=== PATIENT | male | born 1940 | race Caucasian/White ===

== ENCOUNTER 2017-12-12 10:51 | Inpatient (IN) | payer OTHER ==
[~2017-12-12] VITALS: Ht 175.3 cm; Wt 67.9 kg
[~2017-12-12 10:51] MED LIST: ASPIRIN BUFFER325 MG PO; LEVEMIR; LOPRESSOR; LOTREL 5-10 MG1 EACH PO; METFORMIN 500500 MG PO; NOVOLOG100 UNIT/1 SQ; PRILOSEC 20 MG20 MG PO; TOPROL XL25 MG PO
[2017-12-12 11:02] VITALS: BP 156/74
[2017-12-12] MEDS ORDERED: TOUJEO MAX300 UNIT/1 PO (11:10)
[2017-12-12] MEDS ORDERED: VITAMIN B-12500 MCG PO (11:12)
[2017-12-12] MEDS ORDERED: ZOCOR20 MG PO (11:12)
[2017-12-12] MEDS ORDERED: VITAMIN D5000 UNIT PO (11:12)
[2017-12-12] MEDS ORDERED: NUVIGIL150 MG PO (11:13)
[2017-12-12] MEDS ORDERED: FISH OIL 1,001000 M2 PO (11:13)
[2017-12-12] MEDS ORDERED: SILDENAFIL20 MG PO (11:13)
[2017-12-12] MEDS ORDERED: BENAZEPRIL HCL20 MG PO (11:14)
[2017-12-12] MEDS ORDERED: PROTONIX 20 MG20 M1 PO (11:15)
[2017-12-12] MEDS ORDERED: NEURONTIN 400400 M1 PO (11:16)
[2017-12-12] MEDS ORDERED: PREDNISOLONE ACE5 ML INTRAOCULR (11:36)
[2017-12-12 11:37] LABS: ABSOLUTE BASOPHILS 0.1 thou/uL (0.0-0.2); ABSOLUTE LYMPHOCYTES 1.2 thou/uL (0.8-5.3); ABSOLUTE MONOCYTES 0.5 thou/uL (0.0-1.2); ABSOLUTE NEUTROPHILS 7.6 thou/uL (1.6-8.1); BASOPHILS 0.5 %; EOSINOPHILS 0.4 %; HEMATOCRIT 43.3 % (42.0-52.0); HEMOGLOBIN 14.4 gm/dL (14.0-18.0); LYMPHOCYTES 12.5 %; MCH 30.1 pg (26.0-34.0); MCHC 33.4 g/dL (28.0-37.0); MCV 90.1 fL (80.0-100.0); MONOCYTES 5.3 %; NUCLEATED RBCS 0 /100WBC; PLATELET COUNT* 219 thou/uL (150-400); POLYS 81.3 %; RDW-CV 15.2 % (10.5-14.5); WBC 9.4 thou/uL (4.0-11.0)
[2017-12-12] MEDS ORDERED: ACULAR 0.5% EYE5 ML INTRAOCULR (11:38)
[2017-12-12] MEDS ORDERED: MOXEZA3 ML INTRAOCULR (11:38)
--- NOTE | 2017-12-12 11:48 | NUR ---
NELL NOTIFIED UPON PT RETURN FROM CT. PT CONNECTED TO MONITOR
[2017-12-12 11:52] LABS: ANION GAP 6 mmol/L (7-16); BUN 23 mg/dL (7-18); CALCIUM 8.5 mg/dL (8.5-10.1); CHLORIDE 106 mmol/L (98-107); CO2 28 mmol/L (21-32); CREATININE 1.2 mg/dL (0.6-1.3); GLUCOSE 158 mg/dL (70-99); SODIUM 140 mmol/L (136-145)
[2017-12-12 11:59] LABS: ALBUMIN 3.4 g/dL (3.4-5.0); ALKALINE PHOSPHATASE 127 U/L (46-116); SGOT 18 U/L (15-37); SGPT 19 U/L (30-65); TOTAL BILIRUBIN 0.8 mg/dL (<0.1-1.0); TOTAL PROTEIN 7.1 g/dL (6.4-8.2); TROPONIN-I LEVEL <0.06 ng/mL (<0.06)
[2017-12-12 13:49] LABS: CHOLESTEROL 150 mg/dL (<200); HDL CHOLESTEROL 58 mg/dL (>40); LDL CHOLESTEROL 78 mg/dL (<100); TC:HDL 2.6 Ratio (Not establshd); TRIGLYCERIDE 74 mg/dL (<150); VLDL 15 mg/dL (<40)
[2017-12-12 13:51] LABS: SERUM ASSESSMENT Clear
--- NOTE | 2017-12-12 14:37 | EKG ---
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
[2017-12-12 14:44] VITALS: BP 146/78
--- NOTE | 2017-12-12 15:50 | 2DMMODE ---
[place] [address] 2 D/M-MODE ECHOCARDIOGRAM Name: NOEL GARCIA Room: [address] IN [facility]#: [id number] Admission: 12/12/17 Attend Phys: Savannah Moore, Discharge: Date of : 42 Date of Service: 12/12/17 1550 Report #: [id number] THIS REPORT FOR: //name// APPROVED REPORT Study performed: 12/12/2017 14:03:27 EXAM: Comprehensive 2D, Doppler, and color-flow Echocardiogram Patient Location: In-Patient Room #: er Status: routine BSA: 1.88 HR: 66 bpm BP: 169/87 mmHg Rhythm: NSR Other Information Study Quality: Good Indications CVA/TIA Echo Enhancing Agent Indication: Rule out Shunt Agent(s) / Amount(s) Used: Agitated Saline 10 cc 2D Dimensions IVSd: 12.00 (7-11mm) LVOT Diam: 20.44 (18-24mm) LVDd: 44.73 mm PWd: 9.66 (7-11mm) Ascending Ao: 30.93 (22-36mm) LVDs: 23.42 (25-40mm) Aortic Root: 34.32 mm Volumes Left Atrial Volume (Systole) LA ESV Index: 21.40 mL/m2 Aortic Valve AoV Peak Richard.: 1.39 m/s AO Peak Gr.: 7.77 mmHg LVOT Max P.79 mmHg AO Mean Gr.: 4.13 mmHg LVOT Mean P.36 mmHg LVOT Max V: 0.97 m/s AO V2 VTI: 26.13 cm LVOT Mean V: 0.74 m/s ALTA (VTI): 2.33 cm2 LVOT V1 VTI: 18.58 [place] [address] 2 D/M-MODE ECHOCARDIOGRAM Name: NOEL GARCIA Room: [address] IN [facility]#: [id number] Admission: 12/12/17 Attend Phys: Savannah Moore, Discharge: Date of : 42 Date of Service: 12/12/17 1550 Report #: [id number] Mitral Valve E/A Ratio: 1.05 MV Decel. Time: 219.63 ms MV E Max Richard.: 0.90 m/s MV PHT: 63.69 ms MVA (PHT): 3.45 cm2 TDI E/Lateral E': 6.00 E/Medial E': 10.00 Medial E' Richard.: 0.09 m/s Lateral E' Richard.: 0.15 m/s Pulmonary Valve PV Peak Richard.: 1.03 m/s PV Peak Gr.: 4.22 mmHg Left Ventricle The left ventricle is normal size. There is normal LV segmental wall motion. There is normal left ventricular wall thickness. Left ventricular systolic function is normal. The left ventricular ejection fraction is within the normal range. LVEF is 65-70%. The left ventricular diastolic function is normal. Right Ventricle The right ventricle is normal size. The right ventricular systolic function is normal. Atria The left atrium size is normal. Interatrial septum is intact without evidence of ASD or PFO. The right atrium size is normal. Aortic Valve Mild aortic valve sclerosis. No aortic regurgitation is present. There is no aortic valvular stenosis. Mitral Valve There is mitral annular calcification. Trace mitral regurgitation. No evidence of mitral valve stenosis. Tricuspid Valve The tricuspid valve is normal in structure. There is no tricuspid valve regurgitation noted. Pulmonic Valve The pulmonary valve is normal in structure. There is no pulmonic [place] [address] 2 D/M-MODE ECHOCARDIOGRAM Name: NOEL GARCIA Room: [address] IN [facility]#: [id number] Admission: 12/12/17 Attend Phys: Savannah Moore, Discharge: Date of : 42 Date of Service: 12/12/17 1550 Report #: [id number] Great Vessels The aortic root is normal in size. IVC is normal in size and collapses >50% with inspiration. Pericardium There is no pericardial effusion. <Conclusion> LVEF is 65-70%. Mild aortic valve sclerosis. Interatrial septum is intact without evidence of ASD or PFO. <ELECTRONICALLY SIGNED> By: Rocco Morillo MD, [facility] 12/12/17 1550 1550 155 Rocco Morillo MD, FACC /INF
--- NOTE | 2017-12-12 18:13 | NUR ---
PT UP TO UNIT THIS EVENING. PT PLEASANTLY CONFUSED. AT BS BUT DOES NOT PARTICIPATE IN PT CARE. NSR ON MONITOR
[2017-12-12 20:00] VITALS: BP 126/57
[2017-12-13] VITALS: BP 137/70
[2017-12-13 04:00] VITALS: BP 138/71
--- NOTE | 2017-12-13 05:07 | NUR ---
ASSUMED CARE OF PATIENT AT 1930. 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 ASSESSMENT AND VITALS COMPLETED CHARTED, VSS. NIH COMPLETED Q4H. PATIENT SCORE 5 DUE TO RIGHT VISUAL FIELD DEFICIT, DISORIENTATION OF AGE AND MONTH, AND SEVERE LANGUAGE DEFICIT. PATIENT STATES RANDOM WORDS AND LETTERS WHEN ASKED TO READ NIH STROKE PACKET. PATIENT HAD C/O HEADACHE THIS AM. OFFERED PATIENT ACETAMINOPHEN AND AN ICE PACK BUT PATIENT REFUSES. HOURLY ROUNDING OBSERVED. CALL LIGHT WITHIN REACH
[2017-12-13 06:05] LABS: GLYCOHEMOGLOBIN (HGB A1C) 7.8 % (4.8-5.6)
[2017-12-13 06:13] LABS: CALCIUM 8.2 mg/dL (8.5-10.1); CREATININE 1.1 mg/dL (0.6-1.3); POTASSIUM 3.5 mmol/L (3.5-5.1); TOTAL BILIRUBIN 0.7 mg/dL (<0.1-1.0); TOTAL PROTEIN 6.2 g/dL (6.4-8.2)
[2017-12-13 08:47] VITALS: BP 141/74
--- NOTE | 2017-12-13 15:19 | NUR ---
CARDIAC REHEB RECOMMENDS STARTING A STATIN PRIOR TO DISCHARGE. NOTE LEFT IN CHART.
--- NOTE | 2017-12-13 15:38 | NUR ---
Spoke with Pt and . Per , Pt has had increased difficulty with finding words, but Pt has been physically strong. Pt was driving up until yesterday, states she plans to take the keys aware from Pt. No DME. No hx of HH or SNF. Discussed disposition, rehab consult placed, explained that [facility] acute rehab is out of network with Pt's insurance. PT/OT/ST evals completed, Pt will definitely need ST f/u. would like Pt to complete outpt ST v. HH. CM to determine which outpt ST options accept Pt's insurance, preference would be to remain in [place]. Following.
[2017-12-13 16:00] VITALS: BP 160/77
[2017-12-13 20:00] VITALS: BP 159/73
[2017-12-14] VITALS: BP 142/65
[2017-12-14 04:00] VITALS: BP 149/64
--- NOTE | 2017-12-14 04:53 | NUR ---
ASSUMED PT CARE AT 1930. NURSING ASSESSMENT COMPLETED AT START OF SHIFT. PT TRACING SINUS RHYTHM. VOICED NO CONCERNS. NIH SCORE: 4 THIS SHIFT. REFUSING BED ALARM, AT BEDSIDE THIS SHIFT. HOURLY ROUNDING COMPLETED. CALL LIGHT WITHIN REACH.
[2017-12-14 07:30] VITALS: BP 155/78
--- NOTE | 2017-12-14 08:48 | NUR ---
RECEIVED CONSULT FOR POSSIBLE REHAB ADMISSION. CONSULT HAS BEEN ACKNOWLEDGED BY RN TRAVEL AND DR. TONG. PT ADMITTED WITH CVA. UNFORTUNATELY PTS INSURANCE IS OUT OF NETWORK WITH NO OUT OF NETWORK BENEFITS FOR THIS REHAB UNIT AND PT CANNOT COME HERE. NOTIFIED PHILIP ROBLES. DR. TONG WILL FOLLOW AND MAKE POST ACUTE RECOMMENDATIONS WARRENTED. THANK YOU FOR THIS REFERRAL.
[2017-12-14] MEDS ORDERED: ASPIRIN325 PO (11:59)
[2017-12-14 12:00] VITALS: BP 139/67
[2017-12-14 12:31] VITALS: BP 139/67
--- NOTE | 2017-12-14 16:30 | NUR ---
PLUGMAN SPOKE TO JANET WITH OUTPATIENT PHYSICAL THERAPY TO DISCUSS ABILITY TO ACCEPT PATIENT FOR S.T. AT D/C. JANET INFORMS THAT THE FACILTY DOES NOT ACCEPT THE PAITENT'S INSURANCE. SPOKE TO IVONNE WITH OUTPATIENT THERAPY AT [facility] AND HE INFOMS THAT THE FACILITY DOES ACCEPT THE PATIENT'S INSURANCE. FAXED IVONNE WITH [facility] THE PATIENT'S FACESHEET, H&P, AND S.T. ORDER. RAY TO CONTACT THE PATIENT TO SETUP APPOINTMENT. CM WILL REMAIN AVAILABLE TO ASSIST AND FOLLOW NEEDED.
--- NOTE | 2017-12-26 09:50 | CON ---
[address] [address] CONSULTATION Name: NOEL GARCIA Room: [address] IN [facility].#: [id number] Admission: 12/12/17 Attend Phys: Savannah Moore MD Discharge: 12/14/17 Date of : 42 Report #: [id number] THIS REPORT FOR: //name// CC: DONG Moore Physician staff DATE OF SERVICE: 12/12/2017 HISTORY OF PRESENT ILLNESS: This is a 77-year-old male patient who was evaluated by me earlier today. This patient's history is not clear. He is not able to provide any reliable history. His provides history. The history gives is that this patient is having difficulty with word finding for several months. His family practice is at . They referred him to a neurologist. He saw a neurologist at . They do not know the name. Neurologist did an MRI in this patient about 1-1/2 weeks ago. That MRI indicated that the patient had some stroke, but it was chronic according to the family. In the last few days, his memory has been worse. His word finding difficulty has significantly deteriorated. When it started exactly is not clear, but apparently is going on for a few days. estimate the last 3 days or so, he is worse. He is still able to drive. He does not get lost and his biggest problem appeared to be in word finding difficulty and short term memory. There is some history that he has been diagnosed with dementia. I tried to find out whether they ever used the term primary progressive aphasia. They could not provide any history one way or another. REVIEW OF SYSTEMS: Indicate that this patient originally was admitted with eye pain. 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 He has a history of hypertension. He also has a history of diabetes, so he does have some risk factors. He does have a history of dyslipidemia and coronary artery disease. I carried out the 14-point review of system and that was his relevant 14-point review of system. He is complaining of visual disturbances and later on, on the examination he does appear that he has a right hemianopsia. He is not complaining of any ENT, cardiac, respiratory, GI, , musculoskeletal, constitutional, dermatological, hematological, psychiatric, throat, allergic symptom associated with present symptomatology which are new. PAST MEDICAL HISTORY: Positive for stroke in the last MRI, but I do not have that MRI. FAMILY HISTORY: Negative for early age stroke. SOCIAL HISTORY: He does drink alcohol, but he says he drinks less than two alcoholic drinks a day. PHYSICAL EXAMINATION: The patient's examination indicate he is [place] [address] CONSULTATION Name: NOEL GARCIA Room: [address] IN [facility]#: [id number] Admission: 12/12/17 Attend Phys: Savannah Moore MD Discharge: 12/14/17 Date of : 42 Report #: [id number] pretty significant word finding difficulty. He could not name the president, but he could not describe him either. He could not tell me the date, but he knew it was November, but speech is very difficult because he has word finding difficulty. Cranial nerve examination 2-12 does indicate right hemianopsia, which appeared to be dense. He moves all four extremities, but cannot cooperate with the sensory examination. His fundus could not be visualized. Cardiac examination is noncontributory. No respiratory difficulty or rhonchi was noticed. His blood pressure is 146/78, respirations 16 and pulse is 69. LABORATORY DATA: His WBC count is 9.4. His sodium is normal. He did have an MRI of the brain and MRA of the head and neck. MRI of the brain demonstrate acute infarct in the left temporal lobe. It also involved the occipital lobe. 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 His word finding difficulty is at least several months old. This patient is not a TPA candidate and was never a TPA candidate because time of onset is not clear and it is probably 3 days old. He is not a candidate for any intervention because no significant stenosis is present in any vessel and no embolus is visualized. RECOMMENDATIONS: 1. We will check an echocardiogram. 2. He is already on aspirin. 3. We will see if we need to be on statin. 4. We will try to get the record from [facility] and see what his MRI has shown at that time. It was just done about a week and a half ago. I discussed in detail with the patient and the family and he also needs an Ophthalmology consult because of the cataracts and the pain he was complaining, but no ophthalmology service is available on a regular basis. I put a consult and see if they can see and with his history of cataracts, I will suggest excluding other etiology like glaucoma. From stroke perspective for which a Neurology consult was requested, I do not think anything can be done in this patient, but unfortunately the stroke is large enough that it will cause lasting deficit especially because he already had impaired speech in the baseline. More than 50 minutes of time was spent taking care of this patient today and majority of that time was spent counseling the patient's [place] [address] CONSULTATION Name: NOEL GARCIA Room: [address] IN .R.#: [id number] Admission: 12/12/17 Attend Phys: Savannah Moore MD Discharge: 12/14/17 Date of : 42 Report #: [id number] Thank you very much for this referral. <ELECTRONICALLY SIGNED> By: Dom Loya MD 12/26/17 0950 1739 [id number] Loya MD /nt
== END 2017-12-14 12:40 | disposition home health service (06) | DRG 64 ==
LOC: M.ERS 10:51 → M.TBA-ER 12:33 → M.2W 12:33
PROVIDERS: Physician Assistant Surgical; ADMIT Internal Medicine
DX: I63.9 Cerebral infarction, unspecified (principal); G93.41 Metabolic encephalopathy; F03.90 Unspecified dementia, unspecified severity, without behavioral disturbance, psychotic disturbance, mood disturbance, and anxiety; H26.9 Unspecified cataract; E11.9 Type 2 diabetes mellitus without complications; I10 Essential (primary) hypertension; H57.12 Ocular pain, left eye; I25.10 Atherosclerotic heart disease of native coronary artery without angina pectoris; Z95.1 Presence of aortocoronary bypass graft; Z88.8 Allergy status to other drugs, medicaments and biological substances; Z79.4 Long term (current) use of insulin; Z79.899 Other long term (current) drug therapy; Z79.82 Long term (current) use of aspirin; Z86.73 Personal history of transient ischemic attack (TIA), and cerebral infarction without residual deficits; E78.00 Pure hypercholesterolemia, unspecified; H53.8 Other visual disturbances

== ENCOUNTER 2021-05-05 09:55 | Inpatient (IN) | payer OTHER ==
[~2021-05-05] VITALS: Ht 172.7 cm; Wt 67.6 kg
[2021-05-05] VITALS (19 sets, daily range): BP systolic 119–181; BP diastolic 36–85
[~2021-05-05 09:55] MED LIST changes: +ACULAR 0.5% EYE5 ML INTRAOCULR; +ASPIRIN325 PO; +BENAZEPRIL HCL20 MG PO; +FISH OIL 1,001000 M2 PO; +MOXEZA3 ML INTRAOCULR; +NEURONTIN 400400 M1 PO; +NUVIGIL150 MG PO; +PREDNISOLONE ACE5 ML INTRAOCULR; +PROTONIX 20 MG20 M1 PO; +SILDENAFIL20 MG PO; +TOUJEO MAX300 UNIT/1 PO; +VITAMIN B-12500 MCG PO; +VITAMIN D5000 UNIT PO; +ZOCOR20 MG PO
[2021-05-05] MEDS ORDERED: AMLODIPINE BESY10 MG PO (10:27)
[2021-05-05] MEDS ORDERED: ASA81BEC PO (10:27)
[2021-05-05] MEDS ORDERED: LIPITOR40 MG PO (10:28)
[2021-05-05] MEDS ORDERED: DONEPEZIL HCL 55 M1 PO (10:29)
[2021-05-05] MEDS ORDERED: METFORMIN HCL500 MG PO (10:30)
[2021-05-05] MEDS ORDERED: DESYREL150 MG PO (10:32)
[2021-05-05] MEDS ORDERED: NOVOLOG FL100 UNIT/M SUBQ (10:34)
[2021-05-05 10:45] LABS: ABSOLUTE BASOPHILS 0.1 thou/uL (0.0-0.2); ABSOLUTE LYMPHOCYTES 1.5 thou/uL (0.8-5.3); ABSOLUTE MONOCYTES 1.3 thou/uL (0.0-1.2); ABSOLUTE NEUTROPHILS 14.3 thou/uL (1.6-8.1); BASOPHILS 0.5 %; HEMOGLOBIN 13.1 gm/dL (14.0-18.0); LYMPHOCYTES 8.8 %; MCH 31.4 pg (26.0-34.0); MCHC 33.6 g/dL (28.0-37.0); MCV 93.4 fL (80.0-100.0); MONOCYTES 7.4 %; MPV 10.4 fl. (7.2-11.1); NUCLEATED RBCS 0 /100WBC; PLATELET COUNT* 177 thou/uL (150-400); POLYS 83.3 %; RBC 4.17 mil/uL (4.50-6.00); RDW-CV 14.3 % (10.5-14.5); WBC 17.2 thou/uL (4.0-11.0)
[2021-05-05 10:50] LABS: CALCIUM 8.5 mg/dL (8.5-10.1); CREATININE 2.5 mg/dL (0.6-1.3); POTASSIUM 4.2 mmol/L (3.5-5.1)
[2021-05-05 11:01] LABS: ALBUMIN 2.8 g/dL (3.4-5.0); MAGNESIUM 1.4 mg/dL (1.8-2.4); TOTAL BILIRUBIN 1.7 mg/dL (<0.1-1.0); TOTAL PROTEIN 6.8 g/dL (6.4-8.2)
--- NOTE | 2021-05-05 11:43 | EKG ---
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 [employer] White: SUMAN : 1940 Requested By: Noble Baca Order Number: [id number] MD: Rocco Morillo Measurements Intervals [place] Rate: 46 P: 0 ID: QRS: 9 QRSD: 100 T: 58 QT: 574 QTc: 503 Interpretive Statements AV block, complete (third degree) Repol abnrm suggests ischemia, diffuse leads Prolonged QT interval Compared to ECG 12/12/2017 11:25:29 Early repolarization now present Possible ischemia now present Prolonged QT interval now present sinus rhythm no longer present Electronically Signed On 05-05-2021 11:43:00 ASSISTANT TRACK COACH by Rocco Morillo [email or web address] <ELECTRONICALLY SIGNED> By: Rocco Morillo MD, [facility] 05/05/21 1143 1013 1013 Rocco Morillo MD, [facility] /EPI
[2021-05-05 18:17] LABS: URINE BILIRUBIN NEGATIVE (Negative); URINE BLOOD 3+ (Negative); URINE CLARITY CLEAR; URINE COLOR YELLOW; URINE GLUCOSE-RANDOM 3+ (Negative); URINE KETONES TRACE (Negative); URINE LEUKOCYTES NEGATIVE (Negative); URINE NITRITE NEGATIVE (Negative); URINE PROTEIN 1+ (Negative); URINE UROBILINOGEN 0.2 E.U./dl (0.2-1.0)
[2021-05-05 18:24] LABS: BACTERIA 1-9 Few /HPF (None Seen); CASTS None Seen /LPF (None Seen); CRYSTALS None Seen /LPF (None Seen); MUCUS 0-3 Light strn/LPF (None Seen); SQUAMOUS 4-10 Moderate /LPF (0-3); URINE WBC 0-5 Rare /HPF (0-5)
[2021-05-06] VITALS (24 sets, daily range): BP systolic 121–155; BP diastolic 55–75
[2021-05-06 04:19] LABS: ALBUMIN 2.4 g/dL (3.4-5.0); CALCIUM 7.8 mg/dL (8.5-10.1); CREATININE 1.6 mg/dL (0.6-1.3); MAGNESIUM 1.7 mg/dL (1.8-2.4); PHOSPHORUS* 2.6 mg/dL (2.5-4.9); TOTAL PROTEIN 6.3 g/dL (6.4-8.2)
[2021-05-06 04:34] LABS: HEMATOCRIT 37.6 % (42.0-52.0); HEMOGLOBIN 12.6 gm/dL (14.0-18.0); MCH 30.8 pg (26.0-34.0); MCHC 33.5 g/dL (28.0-37.0); MPV 10.2 fl. (7.2-11.1); NUCLEATED RBCS 0 /100WBC; PLATELET COUNT* 154 thou/uL (150-400); RBC 4.09 mil/uL (4.50-6.00); RDW-CV 14.3 % (10.5-14.5); WBC 11.5 thou/uL (4.0-11.0)
[2021-05-06 05:59] LABS: ABSOLUTE LYMPHOCYTES 0.7 thou/uL (0.8-5.3); ABSOLUTE MONOCYTES 0.5 thou/uL (0.0-1.2); ABSOLUTE NEUTROPHILS 10.4 thou/uL (1.6-8.1)
[2021-05-06 06:00] LABS: PLATELET ESTIMATE ADEQUATE
--- NOTE | 2021-05-06 08:39 | CON ---
[address] [address] CONSULTATION Name: NOEL GARCIA Room: [address] IN [facility]#: [id number] Admission: 05/05/21 Attend Phys: Shwetha Diaz Discharge: Date of : 42 Report #: [id number] THIS REPORT FOR: cc: [facility] - Clinic physician unknown [facility] - Clinic physician unknown Vadim Baker MD [facility] ~ DATE OF CONSULTATION: 05/05/2021 CARDIOLOGY CONSULTATION INDICATION: Complete heart block. HISTORY OF PRESENT ILLNESS: The patient is an 81-year-old male admitted through the Emergency Room with COVID-19 pneumonia and respiratory failure. He has a history of coronary artery disease with bypass remotely. He is found to be in complete heart block with a heart rate in the low 40s. He is hemodynamically stable at this time. PAST MEDICAL HISTORY: 1. Coronary artery disease. 2. CABG. 3. CVA. 4. Type 2 diabetes mellitus. 5. Hypertension. 6. Hyperlipidemia. 7. Chronic renal insufficiency. 8. Dementia. ALLERGIES: SIMVASTATIN. CURRENT MEDICATIONS: Benazepril 40 mg p.o. daily, Toujeo insulin 30 units as directed, amlodipine 10 mg daily, aspirin 81 mg daily, atorvastatin 40 mg daily, donepezil 5 mg at bedtime, metformin 500 mg b.i.d., trazodone 75 mg at bedtime, NovoLog insulin b.i.d. SOCIAL HISTORY: The patient is a lifelong nonsmoker. Drinks alcohol only on special occasions. FAMILY HISTORY: Noncontributory. REVIEW OF SYSTEMS: Not obtainable. PHYSICAL EXAMINATION: VITAL SIGNS: Blood pressure 138/36, pulse 41 and regular. GENERAL: This is a pleasant gentleman who is on Bi[place] [address] CONSULTATION Name: NOEL GARCIA Room: [address]#: [id number] Admission: 05/05/21 Attend Phys: Shwetha Diaz Discharge: Date of : 42 Report #: [id number] HEENT: Head is normocephalic, atraumatic. Extraocular muscles intact. NECK: Examination of the neck shows no obvious jugular venous distention. CHEST: Reveals coarse breath sounds with diminished breath sounds throughout. CARDIAC: Reveals a regular rhythm that is bradycardic. ABDOMEN: Reveals normal bowel sounds. The abdomen is soft, nontender. EXTREMITIES: Shows no edema. SKIN: Dry. DIAGNOSTIC DATA: A 12-lead EKG shows complete heart block. Chest x-ray shows diffuse bilateral infiltrates. LABORATORY DATA: Reviewed. Sodium 140, potassium 4.2, chloride 105, bicarbonate 16, BUN 54, creatinine 2.5, serum glucose 247. High sensitivity troponin 608. NT-proBNP 13,512. White blood cell count 17.2, hemoglobin 13.1, platelet count 177,000. IMPRESSION AND RECOMMENDATIONS: 1. Complete heart block. We placed temporary pacemaker at this time. He is on no medications causing any type of rate supression. 2. Coronary artery disease with elevated troponin, likely due to strain. The patient is not having symptoms to suggest acute coronary syndrome. We will follow serial troponins. Recommend continuing daily aspirin if the patient is able. 3. History of coronary artery bypass grafting as outlined above. 4. Acute on chronic renal insufficiency. 5. COVID-19 pneumonia. 6. Hypertension. Blood pressure presently stable. 7. Dyslipidemia. Statin intolerant. <ELECTRONICALLY SIGNED> By: Vadim Baker MD, FACC 05/06/21 0839 1209 1943Micdeann Baker MD, FACC /nt
--- NOTE | 2021-05-06 08:39 | CARD ---
[facility] [address] [place] [address] CARDIAC CATH REPORT Name: NOEL GARCIA Room: [address] IN .R.#: [id number] Admission: 05/05/21 Attend Phys: Shwetha Diaz Discharge: Date of : 42 Report #: [id number] THIS REPORT FOR: cc: [facility] - Clinic physician unknown [facility] - Clinic physician unknown Vadim Baker MD [facility] ~ DATE OF SERVICE: 05/05/2021 CARDIAC PROCEDURE INDICATION: Complete heart block. PROCEDURE: Temporary pacemaker placement. PROCEDURE DESCRIPTION: After informed consent was obtained, the patient was brought to the interventional radiology lab. The area of the neck was prepped and draped in a sterile fashion. Local anesthesia was achieved with 1% lidocaine. Next, using a micropuncture kit the right internal jugular vein was accessed. Ultimately, a 5-Vietnamese sheath was placed with the percutaneous technique. A temporary pacing lead was then advanced to secure position within the right ventricular apex under fluoroscopic guidance. Thresholds were checked and deemed to be satisfactory. The lead was secured to the introducer sheath. A sterile sleeve was secured in place. The introducer was then sutured in place. The patient tolerated the procedure well without complication. IMPRESSION: 1. Complete heart block. 2. Successful placement of a temporary pacemaker wire under fluoroscopic guidance without complication. <ELECTRONICALLY SIGNED> By: Vadim Baker MD, [facility] 05/06/21 0839 1254 Remberto Baker MD, FACC /nt
--- NOTE | 2021-05-06 13:18 | EKG ---
[place] [address] ELECTROCARDIOGRAM REPORT Name: JOSEHANK Klein Room: [address] ADM IN [facility].#: [id number] Admission: 05/05/21 Attend Phys: Hank Milian Discharge: Date of : 42 Date of Service: 05/06/21 1027 Report #: [id number] THIS REPORT FOR: //name// [facility] Test Date: 2021-05-06 Test Time: 10:27:51 Pat Name: HANK GARCIA Department: Room: [address] Gender: M Compensation Specialist: CECI LEONARDO : 1940 Requested By: Richie Carranza Order Number: [id number] Meghan MD: Rocco Morillo Measurements Intervals [place] Rate: 80 P: 0 WI: 183 QRS: -79 QRSD: 161 T: 99 QT: 470 QTc: 543 Interpretive Statements atrial sensed and Ventricular-paced rhythm No further analysis attempted due to paced rhythm Compared to ECG 05/05/2021 10:13:00 paced rhythm now noted Electronically Signed On 05-06-2021 13:18:05 ASPHALT PLANT OPERATOR by Rocco Morillo [email or web address] <ELECTRONICALLY SIGNED> By: Rocco Morillo MD, [facility] 05/06/21 1318 1027 1027 Rocco Morillo MD, [facility] /EPI
--- NOTE | 2021-05-06 14:49 | 2DMMODE ---
[place] [address] 2 D/M-MODE ECHOCARDIOGRAM Name: HANK GARCIA Room: [address] IN [facility]#: [id number] Admission: 05/05/21 Attend Phys: Hank Milian Discharge: Date of : 42 Date of Service: 05/06/21 1448 Report #: [id number] THIS REPORT FOR: cc: [facility] - Clinic physician unknown [facility] - Clinic physician unknown Rocco Morillo MD [facility] ~ ADDENDUM APPROVED REPORT Study performed: 05/06/2021 13:47:55 EXAM: Comprehensive 2D, Doppler, and color-flow Echocardiogram Patient Location: In-Patient Room #: 002 Status: routine BSA: 1.80 HR: 80 bpm BP: 138/69 mmHg Rhythm: NSR Other Information Study Quality: Good Indications Elevated Troponin 2D Dimensions IVSd: 11.84 (7-11mm) LVOT Diam: 20.90 (18-24mm) LVDd: 46.61 mm PWd: 9.61 (7-11mm) Ascending Ao: 29.76 (22-36mm) LVDs: 26.80 (25-40mm) Aortic Root: 39.24 mm Volumes Left Atrial Volume (Systole) LA ESV Index: 30.20 mL/m2 Aortic Valve AoV Peak Richard.: 1.32 m/s AO Peak Gr.: 6.97 mmHg LVOT Max P.21 mmHg AO Mean Gr.: 4.37 mmHg LVOT Mean P.33 mmHg LVOT Max V: 0.74 m/s AO V2 VTI: 24.37 cm LVOT Mean V: 0.55 m/s ALTA (VTI): 2.01 cm2 LVOT V1 VTI: 14.30 [place] [address] 2 D/M-MODE ECHOCARDIOGRAM Name: HANK GARCIA Room: [address] IN [facility]#: [id number] Admission: 05/05/21 Attend Phys: Hank Milian Discharge: Date of : 42 Date of Service: 05/06/21 1448 Report #: [id number] Mitral Valve E/A Ratio: 1.15 MV Decel. Time: 215.39 ms MV E Max Richard.: 1.07 m/s MV PHT: 62.46 ms MVA (PHT): 3.52 cm2 TDI E/Lateral E': 8.92 E/Medial E': 9.73 Medial E' Richard.: 0.11 m/s Lateral E' Richard.: 0.12 m/s Pulmonary Valve PV Peak Richard.: 0.91 m/s PV Peak Gr.: 3.34 mmHg Tricuspid Valve RAP Estimate: 5.00 mmHg TR Peak Gr.: 26.60 mmHg RVSP: 31.00 mmHg PA Pressure: 31.00 mmHg Left Ventricle The left ventricle is normal size. There is normal LV segmental wall motion. There is normal left ventricular wall thickness. Left ventricular systolic function is normal. The left ventricular ejection fraction is within the normal range. LVEF is 60-65%. The left ventricular diastolic function is normal. Right Ventricle The right ventricle is normal size. The right ventricular systolic function is normal. Pacemaker lead is present in the right ventricle. Atria Left atrium is mildly dilated. The right atrium size is normal. Aortic Valve Mild aortic valve sclerosis. No aortic regurgitation is present. There is no aortic valvular stenosis. Mitral Valve Mild mitral annular calcification. Mitral valve leaflets are calcified. Mild mitral regurgitation. No evidence of mitral valve stenosis. Tricuspid Valve The tricuspid valve is normal in structure[place] [address] 2 D/M-MODE ECHOCARDIOGRAM Name: HANK GARCIA Room: [address]#: [id number] Admission: 05/05/21 Attend Phys: Hank Milian Discharge: Date of : 42 Date of Service: 05/06/21 1448 Report #: [id number] regurgitation. Mild pulmonary hypertension. Pulmonic Valve The pulmonary valve is normal in structure. There is trace pulmonic valvular regurgitation. Great Vessels The aortic root is normal in size. IVC is normal in size and collapses >50% with inspiration. Pericardium There is no pericardial effusion. Left pleural effusion. <Conclusion> Left atrium is mildly dilated. Mild aortic valve sclerosis. Mild mitral regurgitation. LVEF is 60-65%. <ELECTRONICALLY SIGNED> By: Rocco Morillo MD, [facility] 05/06/21 1448 1448 1448 Rocco Morillo MD, FACC /INF
[2021-05-07] VITALS (24 sets, daily range): BP systolic 114–148; BP diastolic 49–82
[2021-05-07 04:39] LABS: HEMOGLOBIN 12.4 gm/dL (14.0-18.0); MCH 30.9 pg (26.0-34.0); MCHC 33.5 g/dL (28.0-37.0); MCV 92.3 fL (80.0-100.0); MPV 9.3 fl. (7.2-11.1); RBC 4.01 mil/uL (4.50-6.00); RDW-CV 14.2 % (10.5-14.5); WBC 13.2 thou/uL (4.0-11.0)
[2021-05-07 05:05] LABS: ALBUMIN 2.1 g/dL (3.4-5.0); CALCIUM 7.3 mg/dL (8.5-10.1); CREATININE 1.4 mg/dL (0.6-1.3); MAGNESIUM 1.9 mg/dL (1.8-2.4); TOTAL BILIRUBIN 0.6 mg/dL (<0.1-1.0); TOTAL PROTEIN 5.7 g/dL (6.4-8.2)
[2021-05-08] VITALS: BP 133/69
[2021-05-08 04:00] VITALS: BP 131/63
[2021-05-08 05:24] LABS: HEMATOCRIT 36.9 % (42.0-52.0); HEMOGLOBIN 12.2 gm/dL (14.0-18.0); MCH 30.8 pg (26.0-34.0); MCHC 33.1 g/dL (28.0-37.0); MCV 92.9 fL (80.0-100.0); MPV 9.1 fl. (7.2-11.1); RBC 3.98 mil/uL (4.50-6.00); RDW-CV 14.3 % (10.5-14.5); WBC 12.2 thou/uL (4.0-11.0)
[2021-05-08 05:56] LABS: ALBUMIN 2.2 g/dL (3.4-5.0); CALCIUM 7.2 mg/dL (8.5-10.1); CREATININE 1.2 mg/dL (0.6-1.3); MAGNESIUM 1.9 mg/dL (1.8-2.4); POTASSIUM 3.9 mmol/L (3.5-5.1); TOTAL BILIRUBIN 0.6 mg/dL (<0.1-1.0); TOTAL PROTEIN 5.6 g/dL (6.4-8.2)
[2021-05-08] MEDS ORDERED: DEXAMETHASONE 22 M1 PO (06:15)
[2021-05-08] MEDS ORDERED: DOXYCYCLINE 10100 MG PO (06:15)
[2021-05-08] MEDS ORDERED: CEFDINIR300 MG PO (06:15)
[2021-05-08 09:00] VITALS: BP 145/75
[2021-05-08 12:00] VITALS: BP 138/61
[2021-05-08 14:58] VITALS: BP 138/61
--- NOTE | 2021-05-08 15:55 | EKG ---
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: LOUIE : 1940 Requested By: Savannah Moore Order Number: [id number] Meghan MD: Rocco Morillo Measurements Intervals [place] Rate: 70 P: ID: [id number] QRS: 2 QRSD: 76 T: -22 QT: 437 QTc: 472 Interpretive Statements Atrial-paced rhythm Nonspecific T abnormalities, diffuse leads Compared to ECG 05/06/2021 10:27:51 atrial paced beats now noted Electronically Signed On 05-08-2021 15:55:22 [employer] by Rocco Morillo [email or web address] <ELECTRONICALLY SIGNED> By: Rocco Morillo MD, FAC 05/08/21 1555 1303 1303 Rocco Morillo MD, [facility] /EPI
[2021-05-08 16:01] VITALS: BP 143/70
--- NOTE | 2021-05-08 17:07 | CARD ---
[address] [address] CARDIAC CATH REPORT Name: NOEL GARCIA Room: [address] IN [facility]#: [id number] Admission: 05/05/21 Attend Phys: Shwetha Diaz Discharge: Date of : 42 Report #: [id number] THIS REPORT FOR: cc: [facility] physician unknown [facility] physician unknown Vadim Baker MD [facility] ~ APPROVED REPORT Study performed: 05/07/2021 11:28:21 Patient Status: In-Patient Room #: Event Personnel: Vadim Baker, Sas Analyst; Sukhjinder Mann, CECI Senior Operations Manager; Linda Harden, RTR Scrub; Tammy Raphael RN Monitor Exam: Insertion of Dual Chamber Permanent Pacemaker Indications: Complete Heart Block The patient is a 81 year-old male with a history of Complete heart block. Conscious Sedation Start time: 1252 End Time: 1330 Fentanyl 25.0 mcg Versed 1.0 mg Implanted Devices: Biotronik Edora 8 DRT, model #354397, serial #[id number] dual-chamber pulse generator. Biotronik Solia S 60, model #902101, serial #[id number] ventricular lead. Biotronik Solia S 53, model #827082, serial #[id number] atrial lead. Biotronik Edora 8 DR-T, serial # [id number] Procedure The patient underwent informed consent. We discussed the details of the procedure including the risks, which include, but not limited to bleeding, infection, vascular damage, cardiac perforation, and pneumothorax. He understood these risks and was willing to proceed. As such, he was brought to the EP/Cardiac Catheterization laboratory in a fasting and sedated state and prepped and draped in a sterile fashion, received IV antibiotics prior to initiation of the procedure and a venogram was performed showing patency of the left axillary vein. The patient was brought to the EP/Cardiac Catheterization laboratory and the left chest and shoulder were prepped [place] [address] CARDIAC CATH REPORT Name: NOEL GARCIA Room: [address] IN [facility]#: [id number] Admission: 05/05/21 Attend Phys: Shwetha Diaz Discharge: Date of : 42 Report #: [id number] manner. During this case, Fluoroscopy and visipaque 20cc were used for imaging. IV conscious sedation was used throughout procedure with appropriate monitoring and was performed in the presence of a registered nurse who was an independent trained observer other than the physician performing the procedure. The left subclavian region was infiltrated with 2% Lidocaine with Epinephrine subcutaneous anesthesia. A transverse incision was made in the left upper chest cavity. The subcutaneous pocket was formed via blunt dissection. Percutaneous venous access was achieved and an introducer sheath was inserted into the left Subclavian vein. Through the introducer sheaths the atrial and ventricular lead wires were positioned in the right atrial appendage and right ventricular apex respectively. Capturing and sensing thresholds were verified. After informed consent was obtained the patient was brought to the cardiac catheterization lab. The area of the left chest was prepped and draped in sterile fashion. Local anesthesia was achieved with 1% lidocaine. Patient was given 1 mg of intravenous Versed and 25 mg of intravenous fentanyl for conscious sedation. Next an incision was made in the left chest wall. A device pocket was formed over the left pectoralis muscle using electrocautery and blunt dissection. Next the left subclavian vein was accessed through the pocket. A 6 Dutch sheath was placed percutaneously. The left subclavian vein was accessed a second time through the pocket. A second 6 Dutch venous sheath was placed. Next a ventricular lead was advanced to a secure position within the right ventricular apex. The lead was actively fixed. Thresholds were checked and deemed to be satisfactory. Adequate pacing sensing was assured. Impedances were stable. There was no diaphragmatic stimulation with maximum output pacing. The tear-away introducer was then removed. Next an atrial lead was advanced to a secure position within the atrial appendage. The lead was actively fixed. Thresholds were checked and deemed to be satisfactory. Adequate sensing was assured. Pacing impedances were stable. There was no phrenic nerve stimulation with maximum output pacing. The tear-away introducer was then removed. After adequate slack was assured the atrial and ventricular leads were then secured within the device pocket using interrupted stitches of 0 silk suture in the designated cuffs. The pocket was then flushed with antibiotic solution. Next a dual-chamber pulse generator was attached to the atrial and ventricular lead. The subcutaneous pocket was irrigated with Ancef antibiotic solution. The pulse generator and redundant lead were then placed within [place] [address] CARDIAC CATH REPORT Name: NOEL GARCIA Room: [address] IN [facility]#: [id number] Admission: 05/05/21 Attend Phys: Shwetha Diaz Discharge: Date of : 42 Report #: [id number] deep tissues were closed using interrupted stitches of 2-0 Vicryl. The skin incision was then closed with a single subcuticular stitch of 4-0 Vicryl. Several Steri-Strips were placed across the incision. A sterile Telfa dressing was then placed over the incision. The patient tolerated the procedure well without complication. Electrode Parameters P Wave: 3.5 mV R Wave: 10.0 mV Atrial Threshold: 1.0 V at 0.40 ms Ventricular Threshold: 1.0 V at 0.40 ms Atrial Resistance: 676 ohms Ventricular Resistance: 855 ohms The lead and pulse generator were placed into the subcutaneous pocket. Sharp and sponge counts were confirmed to be correct. The operative site was dressed in sterile fashion with benzoin, steri strips, and tegaderm and the patient was transferred to the floor in stable condition. Complications The patient tolerated the procedure well and there were no complications associated with the procedure. Findings Specimens Removed: No Estimated Blood Loss: 5 ml Conclusion 1. Complete heart block. 2. Successful placement of a dual-chamber pacemaker with atrial and ventricular lead placement. Recommendations 1. Follow-up site check in 1 week. 2. Follow-up device interrogation in 4 to 6 weeks. <ELECTRONICALLY SIGNED> By: Vadim Baker MD, [facility] 05/08/211705 05 05Micdeann Baker MD, FACC /INF
== END 2021-05-08 18:05 | disposition home or self-care (01) | DRG 853 ==
LOC: M.ERS 09:55 → M.TBA-ER 11:26 → M.ICU 11:26 → M.2W 05-07 18:39
PROVIDERS: Family Medicine; Internal Medicine; ADMIT Internal Medicine; ATTEND Internal Medicine
PROC: XW033E5 Introduction of Remdesivir Anti-infective into Peripheral Vein, Percutaneous Approach, New Technology Group 5 (ICD-10-PCS; principal; 2021-05-05)
PROC: 5A1223Z Performance of Cardiac Pacing, Continuous (ICD-10-PCS; 2021-05-05)
PROC: 5A0935A Assistance with Respiratory Ventilation, Less than 24 Consecutive Hours, High Flow/Velocity Cannula (ICD-10-PCS; 2021-05-05)
PROC: 02H63JZ Insertion of Pacemaker Lead into Right Atrium, Percutaneous Approach (ICD-10-PCS; 2021-05-07)
PROC: 0JH606Z Insertion of Pacemaker, Dual Chamber into Chest Subcutaneous Tissue and Fascia, Open Approach (ICD-10-PCS; 2021-05-07)
PROC: 02HK3JZ Insertion of Pacemaker Lead into Right Ventricle, Percutaneous Approach (ICD-10-PCS; 2021-05-07)
PROC: 5A0935A Assistance with Respiratory Ventilation, Less than 24 Consecutive Hours, High Flow/Velocity Cannula (ICD-10-PCS; 2021-05-07)
PROC: 5A09357 Assistance with Respiratory Ventilation, Less than 24 Consecutive Hours, Continuous Positive Airway Pressure (ICD-10-PCS; 2021-05-08)
PROC: 5A0935A Assistance with Respiratory Ventilation, Less than 24 Consecutive Hours, High Flow/Velocity Cannula (ICD-10-PCS; 2021-05-08)
DX: A41.89 Other specified sepsis (principal); J96.01 Acute respiratory failure with hypoxia; U07.1 COVID-19; J12.82 Pneumonia due to coronavirus disease 2019; N17.9 Acute kidney failure, unspecified; I44.2 Atrioventricular block, complete; Z86.73 Personal history of transient ischemic attack (TIA), and cerebral infarction without residual deficits; I12.9 Hypertensive chronic kidney disease with stage 1 through stage 4 chronic kidney disease, or unspecified chronic kidney disease; N18.9 Chronic kidney disease, unspecified; Z95.1 Presence of aortocoronary bypass graft; E11.65 Type 2 diabetes mellitus with hyperglycemia; Z79.4 Long term (current) use of insulin; F03.90 Unspecified dementia, unspecified severity, without behavioral disturbance, psychotic disturbance, mood disturbance, and anxiety; E78.5 Hyperlipidemia, unspecified; Z88.8 Allergy status to other drugs, medicaments and biological substances; E11.22 Type 2 diabetes mellitus with diabetic chronic kidney disease; Z79.899 Other long term (current) drug therapy